=== PATIENT | male | born 1955 | race Caucasian/White ===

== ENCOUNTER 2023-07-02 10:22 | Outpatient (CLI) | payer MEDICARE, SELFPAY ==
--- NOTE | ~2023-07-02 | XR_ITS ---
EXAMINATION: XR lumbar spine min 4V DATE: 07/02/2023 11:08 INDICATION: Spinal stenosis, lumbar region. TECHNIQUE: 4 views of lumbar spine standing including flexion and extension views were obtained. COMPARISON: None. FINDINGS: There is 4 degrees dextrocurvature of lumbar spine. There is 3 mm anterolisthesis of L4 on L5. There is mild chronic anterior wedging of T12 vertebral body. There is mildly decreased disc heig ht at L3-L4 and L4-L5. There is multilevel facet joint osteoarthritis, moderate to severe in lower yola mbar spine. There is no abnormal motion with flexion or extension. Calcifications in the area of the pancreas are consistent with chronic pancreatitis. IMPRESSION: 1. Mild lumbar spondylosis. Reviewed, dictated and finalized at location A. IMPRESSION: 1. Mild lumbar spondylosis.
--- NOTE | 2023-07-02 10:30 | ECG_ITS ---
Measurements Intervals [place] Rate: 63 P: 77 [place]: 163 QRS: 75 QRSD: 92 T: 71 QT: 381 QTc: 391 Interpretive Statements SINUS RHYTHM NORMAL ELECTROCARDIOGRAM NO PREVIOUS ECG AVAILABLE FOR COMPARISON Electronically Signed On 07-02-2023 14:47:41 CDT by Trey Ruffin M.D.
[2023-07-02 12:27] LABS: Hematocrit 42.5 % (42.0-52.0); Hemoglobin 13.9 g/dL (14.0-18.0); Mean Corpuscular HGB Conc 32.7 g/dl (32-36); Mean Corpuscular Hemoglobin 31.2 pg (26-34); Mean Corpuscular Volume 95.5 fl (80-100); Mean Platelet Volume 10.2 fl (7.4-10.4); Platelet Count Result 215 k/mm3 (150-375); Red Blood Count 4.45 M/mm3 (4.6-6.20); Red Cell Distribution Width 11.1 % (11.5-14.5); White Blood Count 7.6 K/mm3 (4.5-10.0)
[2023-07-02 12:30] LABS: Appearance Urine Clear (Clear); Bilirubin Urine Negative (Negative); Blood Urine Negative (Negative); Color Urine Yellow (Yellow); Glucose Urine UA Negative (Negative); Ketones Urine Trace mg/dL (Negative); Leukocyte Esterase Ur Negative LEU/UL (Negative); Nitrate Urine Negative (Negative); Protein Urine Negative (Negative); Urobilinogen Urine 0.2 mg/dL (<2.0)
[2023-07-02 12:35] LABS: Add Urine Microscopic? NO
[2023-07-02 12:38] LABS: Anion Gap 7 mmol/L (8-16); Blood Urea Nitrogen 18 mg/dL (9-20); Calcium 9.5 mg/dL (8.4-10.2); Carbon Dioxide 27 mmol/L (22-30); Chloride 100 mmol/L (98-107); Estimated Glomerular Filt Rate > 60; Glucose 120 mg/dL (65-110); Potassium 4.7 mmol/L (3.4-5.0); Sodium 134 mmol/L (137-145)
[2023-07-02 12:40] LABS: INR 0.9
[2023-07-02 12:41] LABS: Partial Thromboplastin Time 30.9 SECONDS (22.3-36.8)
== END 2023-07-02 10:23 | disposition home or self-care (01) ==
PROVIDERS: Visit Provider Neurological Surgery
DX: Z01.812 Encounter for preprocedural laboratory examination (principal); Z01.810 Encounter for preprocedural cardiovascular examination; M48.061 Spinal stenosis, lumbar region without neurogenic claudication; I10 Essential (primary) hypertension; M47.816 Spondylosis without myelopathy or radiculopathy, lumbar region
CPT/HCPCS: 36415; 72110; 80048; 81003; 83036; 85027; 85610; 85730; 93005

== ENCOUNTER 2023-07-06 01:47 | Day surgery (SDC) | payer MEDICARE, SELFPAY ==
--- NOTE | 2023-06-30 10:47 | PC.NURSE ---
Report to the Outpatient Waiting Room, entrance under the green pavilion located off [facility], at time __0730 on date _07/06/23 . Planned Procedure Time: 929 . Time changes happen often and if your time is changed the preop area will call you the afternoon before. - You and your visitor will be asked to self-screen and do not enter if you have any COVID symptoms. - A mask is optional within the hospital at this time. Patients may have clear liquids (water, carbonated beverages, clear teas, apple juice) until 3 hours prior to surgery with a maximum of 20 ounces. - No food from midnight until time of surgery - Infants may have breast milk until 4 hours before surgery, infant formula 6 hours prior to surgery. - Children will be allowed to drink immediately following surgery. If applicable, please bring a bottle or sippy cup to assist with drinking. Juice, water, soda, and popsicles are readily available. For infants on formula, please bring formula the day of surgery. Pacifiers are allowed. Take the following medications with a SIP of water the morning of surgery: ___HYDROCODONE IF NEEDED FOR PAIN DO NOT STOP ANY OF YOUR OTHER PRESCRIPTION MEDICATIONS PRIOR TO SURGERY ?EXCEPT THE FOLLOWING Medications to discontinue per physician ____PT STATES HOLD CELEBREX 7 DAYS PRE OP PER DR OWENS.LAST DOSE 06/28/23 Please no make-up, nail nauruan, hairspray, perfume, deodorant, or body powder the day of surgery. No jewelry (including any body piercings) or valuables the day of surgery, leave them at home. Please take a shower or bath the night before, or the morning of, surgery with an antibacterial soap. Wear comfortable, loose fitting clothing. Children are encouraged to wear pajamas. - Jewelry must be removed prior to entering the operating room. Rings and piercings that are not removed may be cut off. - The hospital will not accept responsibility for valuables. - Please leave all valuables, including medications, at home the day of surgery. If you are going home after surgery, a licensed wrecker driver must drive you home. - NO public transportation without another adult if you receive anesthesia. - We recommend that an adult stay with you for 24 hours following discharge. - We also recommend that you do not drive, make important decision, drink alcoholic beverages, or take any drugs that were not prescribed by your health care provider for at least 24 hours after your discharge time. For Pediatric surgeries, we recommend two adults accompany the child home. Follow any additional instructions given to you from your surgeon. If you or anyone in your household have experienced Covid symptoms in the past week, please notify your surgeon or the nurse liaison at the phone number below for possible testing. Telephone instructions given to __PATIENT and asked if any additional questions and then verbalized understanding. Patient advised to call surgeon office or pre surgery nurse liaison [phone] if any additional questions.
[2023-06-30 11:02] VITALS: BMI 23.3
[2023-07-06] VITALS (7 sets, daily range): BP systolic 129–146; BP diastolic 57–70; PULSE 63–84; RESP 12–16; TEMP 36.1–36.6; O2SAT 99–100
--- NOTE | ~2023-07-06 | XR_ITS ---
EXAMINATION: XR fluoroscopy no charge DATE: 07/06/2023 10:45 CDT INDICATION: LUMBAR DECOMPRESSION . TECHNIQUE: 1 fluoroscopic image of the lateral lumbar spine were obtained during lumbar decompression performed by the surgeon. I was not present in the operating room. Fluoroscopy exposure time was 5.5 seconds. Air Kerma 1.1131 mGy. DAP 0.0221 mGym2. COMPARISON: X-ray lumbar spine 07/02/2023 FINDINGS: A single lateral view demonstrates skin retractors over the posterior soft tissues. A probe or other surgical instrument overlies the L4 posterior elements, directed towards the L4-5 disc space. IMPRESSION: Fluoroscopic documentation of lumbar decompression. Please refer to the operative note for complete p rocedural details . Reviewed, dictated and finalized at location K. IMPRESSION: Fluoroscopic documentation of lumbar decompression. Please refer to the operati ve note for complete procedural details .
--- NOTE | 2023-07-06 07:49 | PM.IMHP ---
H&P: HPI History of Present Illness Date/Time: 07/06/23 07:49 Chief Complaint: Hussain Anderson is a 67 year old male who presents with a referral from Dr Jordan for evaluation of low back (L>R) and left buttock and lower extremity pain.? He experienced low back pain extending to LLE which was shooting and painful, approximately 10 years ago and was treated with injections and PT, which relieved his pain and his radiating lower extremity pain. The patient had a recurrence of pain over the past 1 year, heightened since October 2022.? He describes low back pain with radiation of the pain to his left buttock.? He denies an injury or inciting event. He reports a numbing and tingling sensation to his left buttocks. The patient denies any weakness to his bilateral lower extremities. He denies any changes in his gait or falls. He denies any bowel or bladder incontinence.? He notes occasional right lower extremity pain but the left side predominates. The pain is exacerbated with standing, walking for even short distances, mowing grass, twisting, lifting objects and stooping over.? Reports that the pain is improved with bending over, sitting and resting in a recliner, heat and medications.? He describes his pain as? an achy feeling, sharp, stabbing and shooting. ? He is taking hydrocodone 10/325 mg b.i.d., prescribed by pain management. He has previously undergone injections with Dr. Cavazos including selective nerve root block, medial branch blocks which he reported he found relief with the 1st but not to the 2nd.? He underwent a left SI joint injection which he reported as not effective in his pain relief. ? The patient reports a pain score of 4/10 while sitting in the office but does report that it will increase to a 6-7/10 with walking and standing.? He has undergone MR imaging of the lumbar spine that shows multilevel spondylotic changes.? There is disc desiccation and loss of disc space height at the L4-5 level.? At L4-5 a disc bulge in concert with ligamentous hypertrophy as well as a left-sided synovial cyst contribute to moderate to severe central stenosis.? There is a slight spondylolisthesis at this level with no increase on standing or dynamic plain x-rays. ? the patient has seen Dr. Jordan and has undergone a lumbar epidural steroid injection targeting L4-5.? He notes significant improvement in his pain.? He allows, however, the previous injections have not lasted and he is inclined to consider surgical intervention of note, Mr. Nunes does have a history of diabetes.? While typically his hemoglobin A1c levels have been in the 6 is his most recent level was higher, he thinks 9 in the spring.? He allows that he was having a lot of challenges around that time including the tragic of his son? and that he has adjusted his medications since.? A recent repeat study was 6 [facility] Past Medical History Medical History Acute arthritis Alcohol abuse Diabetes High cholesterol Lumbar stenosis Radiculopathy, cervical region Spinal stenosis, lumbar region with neurogenic claudication Spondylosis without myelopathy or radiculopathy, cervical region Surgical History Surgical History H/O hand surgery H/O hernia repair H/O shoulder surgery Family History Family History Other Diabetes mellitus Heart disease Hypertension Social History Social History Smoking packs per day: 0.75 Smoking cigarettes per day: 15.0 Years smoked: 40 Smoking pack-years: 30.00 Smoking status: Current every day smoker Tobacco type: cigarettes Alcohol intake: current Substance use: never Substance use type: does not use Lack of Transportation: No Lack of Food: Never True Current Housing: I Have Housing Concerned About Future Housing: No
--- NOTE | 2023-07-06 07:52 | WPDHPUPDATE1 ---
History and Physical Update Update Date/Time: 07/06/23 07:52 History and Physical has been reviewed, including an updated exam of the patient. There are NO changes in the patient's condition. Risks, benefits, and alternatives have been discussed and questions answered. Patient agrees to proceed with procedure.
[2023-07-06 08:20] LABS: Glucose Point of Care 119 mg/dl (65-105)
--- NOTE | 2023-07-06 08:49 | WPDANESEPPF ---
Anes - Initial Pre Proc Eval Procedure: Operation Date: 07/06/23 09:30 Proposed Procedures p Lumbar Decompression at L 4-5 with Removal of Synovial Cyst - Mel Felix MD Date/Time: 07/06/23 08:49 Surgeon: Mel Felix MD Pre Op Diagnosis: lumbar stenosis synovial cyst Patient Data Age: 67 Gender: M Height: 1.88 m Weight: 77.1 kg Last Vital Signs Temp 36.6 C 07/06/23 08:21 Pulse 63 07/06/23 08:21 Resp 14 07/06/23 08:21 BP 136/70 07/06/23 08:21 Pulse Ox 99 07/06/23 08:21 O2 Del Method Room Air 07/06/23 08:21 Allergies Allergy/AdvReac Type Severity Reaction Status Date / Time Penicillins Allergy Mild Unknown Verified 07/06/23 08:28 Home Medications Medication Instructions Recorded Confirmed Type celecoxib 200 mg capsule 200 mg PO DAILY 01/04/23 06/30/23 History lisinopril 2.5 mg tablet 2.5 mg PO DAILY 01/04/23 06/30/23 History metformin 500 mg tablet 1,000 mg PO BID 01/04/23 06/30/23 History rosuvastatin 10 mg tablet 10 mg PO DAILY 01/04/23 06/30/23 History tamsulosin 0.4 mg capsule 0.4 mg PO DAILY 01/04/23 06/30/23 History tirzepatide 5 mg/0.5 mL 5 mg subcut WEEKLY 02/12/23 06/30/23 History subcutaneous pen injector (Mounjaro) hydrocodone 10 mg-acetaminophen 1 tablet PO TID PRN Pain 06/30/23 07/06/23 History 325 mg tablet Laboratory Tests 07/06/23 08:16 POC Capillary Glucose 119 H mg/dl (65-105) Patient hx anesthesia problems: none Family hx anesthesia problems: none Results Review: All pre-operative results and documents have been reviewed as part of the pre-operative evaluation. [facility] Past Medical History Medical History (Updated 07/06/23 @ 09:21 by Augustine Marti DO) Acute arthritis Chronic pain Chronic, continuous use of opioids Diabetes High cholesterol Hypertension Lumbar stenosis Radiculopathy, cervical region Spinal stenosis, lumbar region with neurogenic claudication Spondylosis without myelopathy or radiculopathy, cervical region Surgical History Surgical History H/O hand surgery H/O hernia repair H/O shoulder surgery Family History Family History Other Diabetes mellitus Heart disease Hypertension Social History Social History Smoking packs per day: 0.75 Smoking cigarettes per day: 15.0 Years smoked: 40 Smoking pack-years: 30.00 Smoking status: Current every day smoker Tobacco type: cigarettes Alcohol intake: current Substance use: never Substance use type: does not use Lack of Transportation: No Lack of Food: Never True Current Housing: I Have Housing Concerned About Future Housing: No Difficulty Paying Gas/Electric Bills: No Difficulty Paying for Meds: No Currently Unemployed: No Education: Decline to Answer Difficulty w/ Childcare or Family Care: No Living arrangements: with family Spiritual care concerns: No Anes - Eval Final PreProcedure Day of Procedure 07/06/23 08:49 Patient weight: normal Heart: regular rate and rhythm Lungs: clear to auscultation Airway: Mallampati scale class II Neurological: alert and oriented Last oral intake: >/= 8 hours ASA classification: III Emergent: no Anesthetic plan: proceed Anesthesia type and monitoring: general ETT and standard monitoring Results Review: All pre-operative results and documents have been reviewed as part of the pre-operative evaluation. Informed Consent: The patient's anesthetic plan and its attendant risks and benefits were discussed with the patient/family/POA. Questions were solicited and answers provided to the satisfaction of the patient/family/POA.
[2023-07-06] MEDS: ceFAZolin 2 GM/D5W 50 ML 2 GM/50 ML BAG IVPB (10:25)
[2023-07-06] MEDS: LIDO 1%/EPINEPHRINE 1:100,000 20 ML VIAL INFILTRATE (10:54)
--- NOTE | 2023-07-06 11:43 | W.PM.PROC2 ---
Procedure Note - Detailed Date of Procedure 07/06/23 Pre-op Diagnosis lumbar stenosis synovial cyst L4-5 Post-op Diagnosis Same Procedure Performed Lumbar decompression L4-5 with removal of synovial cyst Surgeon Mel Felix MD Anesthesia General Indications Hussain Anderson is a very pleasant 67 year old? male who presents at the request of? Dr. Reese not with signs and symptoms of? low back and left greater than right lower extremity pain in the setting of? lumbar stenosis with a left-sided synovial cyst at L4-5 on imaging.? Hussain has tried treatments that include formal physical therapy as well as multiple attempts at interventional measures.? A recent epidural steroid injection targeting the stenosis has given significant but not complete relief of his pain. In the office the most concerning symptom to the patient was? that for the past year his pain has been increasingly bothersome and limiting.? He likes to do a lot of activities on his property including yard work and mowing and even these activities are a struggle due to his pain. The patient and I have had an extended discussion in the office regarding the options for management of these clinical symptoms and radiographic findings. We have discussed the option of additional physical therapy or repeated interventional pain management strategies including ED or ablative procedures. In this case we have more specifically discussed that while it would be reasonable to consider additional epidural steroid injections, the patient states that when he has had these in the past they have not given lasting relief and the likelihood that repeated times would offer a different result a small. Finally, we have generally discussed the option of surgery. In the absence of functional deficits, I have explained that my preference is to exhaust non surgical options prior to consideration of surgery. However, we have discussed that if we were unable to obtain durable relief of symptoms with non surgical measures that it would be reasonable to consider surgical intervention. In this case we have discussed that surgery would likely entail a lumbar decompression with removal synovial cyst at L4-5.? Given the absence of dynamic instability we would not need to consider a surgical fusion. Hussain is inclined to pursue surgery. I have discussed the indications as well as the risks of surgery including but not limited to bleeding, infection, CSF leak, numbness, weakness, paralysis, stroke, coma, even . We have discussed the fundamentals of the surgical procedure as well as the typical recovery from surgery. He indicates understanding and asks us to proceed with surgery, specifically a lumbar decompression at L4-5 Description of Procedure The patient was brought into the operating room where general anesthesia was induced.? Appropriate monitoring was obtained.? The patient was turned into a prone position on the K[place] table with a Keshav frame.? Extremities were padded.? The patient was secured with straps to the table.? Localization was performed using intraoperative fluoroscopy and the? L4-5 level was identified. The patient's back was prepped and draped sterilely.? A surgical time out was performed.? The planned incision was infused with local anesthetic.? The incision was made using a #10 skin blade.? Hemostasis was achieved. Self retaining retractors were placed and advanced.? The? L4? spinous process was identified and the muscle was dissected off of the spinous process and lamina of L4 using bovie electrocautery.? Self retaining retractors were advanced.? A curette was placed under the L4 lamina and the L4-5 level was confirmed again using intraoperative fluoroscopy.? Attention was first turned to the L4-5 level.?? The spinous process of L4 was removed using a rongeur.? The lamina was drilled using a high speed pavel drill with a matchstick tip.? The lamina was drilled lateral to the level of the facet complex until, in
[2023-07-06] MEDS: LACTATED RINGERS 1,000 ML 30 ML IV CONT ×2 (12:07→12:57)
[2023-07-06 12:20] LABS: Glucose Point of Care 129 mg/dl (65-105)
[2023-07-06] MEDS: fentaNYL CITRATE INJ (*CRX) 100 MCG/2 ML VIAL 25 MCG IV PUSH ×8 (12:36→13:01)
[2023-07-06] MEDS: HYDROmorphone HCL INJ (*CRX) 1 MG/ML SYR 0.5 MG IV PUSH ×4 (13:10→13:25)
[2023-07-06] MEDS: oxyCODONE HCL (*CRX) 5 MG TAB IR PO (14:05)
--- NOTE | 2023-07-06 16:54 | SUR.PHASEII ---
PATIENT CALLED TO SAY THAT THE [facility] IN [place] NEEDS TO GET AN OKAY FROM THE SURGEON TO FILL THE OXYCODONE WITH TYLENOL SCRIPT. DR. OWENS'S EXCHANGE CALLED RE: THIS. PATIENT CALLED BACK TO TELL HIM THAT THE EXCHANGE WOULD CONTACT THE SURGEON.
== END 2023-07-06 14:10 | disposition home or self-care (01) ==
PROVIDERS: Visit Provider Neurological Surgery
PROC: (CPT 22612; principal; 2023-07-06 09:30)
DX: M48.062 Spinal stenosis, lumbar region with neurogenic claudication (principal); M71.38 Other bursal cyst, other site; E11.9 Type 2 diabetes mellitus without complications; I10 Essential (primary) hypertension; E78.00 Pure hypercholesterolemia, unspecified; G89.29 Other chronic pain; M47.22 Other spondylosis with radiculopathy, cervical region; F17.210 Nicotine dependence, cigarettes, uncomplicated; Z79.84 Long term (current) use of oral hypoglycemic drugs; Z79.899 Other long term (current) drug therapy; Z79.891 Long term (current) use of opiate analgesic
CPT/HCPCS: 63267; 36415; 72110; 80048; 81003; 82948; 83036; 85027; 85610; 85730; 93005; 99199; A9270; C9290; J0330; J0690; J1100; J1170; J2250; J2371; J2405; J2704; J3010; J7120